=== PATIENT | male | born 1985 | race Caucasian/White ===

== ENCOUNTER 2018-04-07 18:23 | Emergency (ER) | payer MEDICAID ==
[~2018-04-07] VITALS: Ht 193 cm; Wt 81.0 kg
[~2018-04-07 18:23] MED LIST: CEPH-572 PO; CYCL-1 PO; FAMO-128 PO; HYDR-569 PO; METH-360 PO; ONDA8TAB9 PO; SULF1TAB49 PO; VANC5VIA PO
[2018-04-07] MEDS ORDERED: BACDS PO (20:09)
[2018-04-07 20:27] VITALS: BP 121/76
== END 2018-04-07 20:34 | disposition home or self-care (01) ==
LOC: ER 18:23
DX: L03.115 Cellulitis of right lower limb (principal); K21.9 Gastro-esophageal reflux disease without esophagitis; G89.29 Other chronic pain; F12.10 Cannabis abuse, uncomplicated; Z90.49 Acquired absence of other specified parts of digestive tract; Z88.8 Allergy status to other drugs, medicaments and biological substances; Z79.899 Other long term (current) drug therapy
CPT/HCPCS: 99283

== ENCOUNTER 2018-11-27 01:43 | Emergency (ER) | payer MEDICAID ==
[~2018-11-27] VITALS: Ht 193 cm; Wt 85.1 kg
[~2018-11-27 01:43] MED LIST changes: -CEPH-572 PO; +GABA300C PO; +HYDR-4383 PO; -HYDR-569 PO; +ONDA4TAB6 PO; -SULF1TAB49 PO
[2018-11-27 01:56] VITALS: BP 117/81
[2018-11-27 03:07] LABS: BASOPHILS % (AUTO) 0.3 % (0-1); EOSINOPHILS # (AUTO) 0.1 X10'3 (0-0.9); EOSINOPHILS % (AUTO) 1.1 % (0-6); HEMATOCRIT 43.1 % (42.0-52.0); HEMOGLOBIN 14.6 g/dl (14.0-17.9); LYMPHOCYTES # (AUTO) 1.9 X10'3 (1.1-4.8); LYMPHOCYTES % (AUTO) 19.1 % (21-51); MEAN CORPUSCULAR HEMOGLOBIN 30.3 PG (27.0-31.0); MEAN CORPUSCULAR HGB CONC 33.9 % (33.0-36.5); MEAN CORPUSCULAR VOLUME 89.5 FL (78-98); MEAN PLATELET VOLUME 8.5 FL (7.4-10.4); MONOCYTES # (AUTO) 0.8 X10'3 (0-0.9); MONOCYTES % (AUTO) 7.7 % (2-12); NEUTROPHILS % (AUTO) 71.8 % (42-75); PLATELET COUNT 310 X10'3 (140-440); RED BLOOD COUNT 4.82 X10'6 (4.70-6.10); RED CELL DISTRIBUTION WIDTH 11.8 % (11.5-14.5); WHITE BLOOD COUNT 9.8 X10'3 (4.5-11.0)
[2018-11-27 03:17] LABS: ALANINE AMINOTRANSFERASE 27 U/L (12-78); ALBUMIN 4.2 G/DL (3.4-5.0); ALBUMIN/GLOBULIN RATIO 1.4 (1.1-1.5); ALKALINE PHOSPHATASE 43 IU/L (46-116); ANION GAP 11 (8-16); ASPARTATE AMINO TRANSFERASE 12 U/L (10-37); BILIRUBIN,TOTAL 1.3 MG/DL (0.1-1.0); BLOOD UREA NITROGEN 25 MG/DL (7-18); BUN/CREATININE RATIO 16.9 (5.4-32.0); CHLORIDE 105 MMOL/L (99-107); CREATININE 1.48 MG/DL (0.60-1.10); GLUCOSE 92 MG/DL (70-104); LIPASE 83 U/L (73-393); POTASSIUM 4.7 MMOL/L (3.5-5.1); SODIUM 141 MMOL/L (135-145); TOTAL CARBON DIOXIDE 24.7 MMOL/L (24-32); TOTAL PROTEIN 7.1 G/DL (6.4-8.2); eGFR 55 ML/MIN
[2018-11-27] MEDS ORDERED: HYDROcodone/acetaminophen 10/325mg tab PO ONE (04:35)
[2018-11-27] MEDS ORDERED: ondansetron/PF 4mg/2ml inj IV ONE (04:35)
[2018-11-27] MEDS ORDERED: morphine 4 MG/ML inj SYRINge IV ONE (04:50)
--- NOTE | 2018-11-27 04:52 | NUR ---
made aware pt refused norco and wants IV pain medicine.
--- NOTE | 2018-11-27 05:09 | NUR ---
pt given d/c instructions, however, he is laying in the bed and feels like vomiting, mom at his side.
[2018-11-27] MEDS ORDERED: FAMO40TA73 PO (16:17)
[2018-11-27] MEDS ORDERED: ONDA4TAB6 PO (16:17)
[2018-11-27] MEDS ORDERED: PHE25R PR (20:37)
[2018-11-27] MEDS ORDERED: SUCR1TAB34 PO (20:37)
[2018-11-28] MEDS ORDERED: SUCR1TAB34 PO (21:38)
== END 2018-11-27 05:14 | disposition home or self-care (01) ==
LOC: ER 01:44
DX: R10.33 Periumbilical pain (principal); R11.2 Nausea with vomiting, unspecified; F12.90 Cannabis use, unspecified, uncomplicated; K21.9 Gastro-esophageal reflux disease without esophagitis; G89.29 Other chronic pain; Z90.49 Acquired absence of other specified parts of digestive tract; Z88.1 Allergy status to other antibiotic agents; Z88.6 Allergy status to analgesic agent; Z79.899 Other long term (current) drug therapy
CPT/HCPCS: 36415; 74176; 80053; 83690; 85025; 96374; 96375; 99284; J2270; J2405

== ENCOUNTER 2018-11-27 13:36 | Emergency (ER) | payer MEDICAID ==
[~2018-11-27] VITALS: Ht 193 cm; Wt 85.6 kg
[2018-11-27] MEDS ORDERED: normal saline 1000ML IV soln IVB ONE (15:15)
[2018-11-27] MEDS ORDERED: famotidine/PF 10 mg/ml inj IV ONE (15:15)
[2018-11-27] MEDS ORDERED: ondansetron/PF 4mg/2ml inj IV ONE (15:15)
[2018-11-27 15:38] LABS: BASOPHILS % (AUTO) 0.5 % (0-1); EOSINOPHILS # (AUTO) 0.1 X10'3 (0-0.9); EOSINOPHILS % (AUTO) 1.8 % (0-6); HEMATOCRIT 39.2 % (42.0-52.0); HEMOGLOBIN 13.6 g/dl (14.0-17.9); LYMPHOCYTES # (AUTO) 1.2 X10'3 (1.1-4.8); LYMPHOCYTES % (AUTO) 18.3 % (21-51); MEAN CORPUSCULAR HEMOGLOBIN 31.1 PG (27.0-31.0); MEAN CORPUSCULAR HGB CONC 34.5 % (33.0-36.5); MEAN CORPUSCULAR VOLUME 89.9 FL (78-98); MEAN PLATELET VOLUME 8.3 FL (7.4-10.4); MONOCYTES # (AUTO) 0.4 X10'3 (0-0.9); MONOCYTES % (AUTO) 5.9 % (2-12); NEUTROPHILS # (AUTO) 5.1 X10'3 (1.8-7.7); NEUTROPHILS % (AUTO) 73.5 % (42-75); PLATELET COUNT 235 X10'3 (140-440); RED BLOOD COUNT 4.36 X10'6 (4.70-6.10); WHITE BLOOD COUNT 6.8 X10'3 (4.5-11.0)
[2018-11-27] MEDS: morphine 4 MG/ML inj SYRINge IV PRN ×3 (15:38→17:39)
[2018-11-27 15:52] LABS: ALANINE AMINOTRANSFERASE 25 U/L (12-78); ALBUMIN 3.7 G/DL (3.4-5.0); ALBUMIN/GLOBULIN RATIO 1.3 (1.1-1.5); ALKALINE PHOSPHATASE 38 IU/L (46-116); ANION GAP 8 (8-16); ASPARTATE AMINO TRANSFERASE 10 U/L (10-37); BILIRUBIN,TOTAL 1.1 MG/DL (0.1-1.0); BLOOD UREA NITROGEN 18 MG/DL (7-18); BUN/CREATININE RATIO 14.2 (5.4-32.0); CALCIUM 8.6 MG/DL (8.5-10.1); CHLORIDE 107 MMOL/L (99-107); CREATININE 1.27 MG/DL (0.60-1.10); ETHANOL < 0.010 GM/DL (0.0-0.010); GLUCOSE 98 MG/DL (70-104); LIPASE 111 U/L (73-393); POTASSIUM 3.9 MMOL/L (3.5-5.1); SODIUM 142 MMOL/L (135-145); TOTAL CARBON DIOXIDE 26.7 MMOL/L (24-32); TOTAL PROTEIN 6.5 G/DL (6.4-8.2); eGFR 65 ML/MIN
[2018-11-27] MEDS ORDERED: ONDA4TAB6 PO (16:17)
[2018-11-27] MEDS ORDERED: FAMO40TA73 PO (16:17)
[2018-11-27] MEDS ORDERED: ketorolac trometh. 30mg/ml inj. IV ONE (17:25)
[2018-11-27 18:03] VITALS: BP 129/86
[2018-11-27] MEDS ORDERED: PHE25R PR (20:37)
[2018-11-27] MEDS ORDERED: SUCR1TAB34 PO (20:37)
[2018-11-28] MEDS ORDERED: SUCR1TAB34 PO (21:38)
== END 2018-11-27 17:55 | disposition home or self-care (01) ==
LOC: ER 13:37
DX: K29.20 Alcoholic gastritis without bleeding (principal); R10.30 Lower abdominal pain, unspecified; R10.84 Generalized abdominal pain; K21.9 Gastro-esophageal reflux disease without esophagitis; G89.29 Other chronic pain; F12.90 Cannabis use, unspecified, uncomplicated; Z90.49 Acquired absence of other specified parts of digestive tract; Z88.1 Allergy status to other antibiotic agents; Z88.6 Allergy status to analgesic agent; Z79.899 Other long term (current) drug therapy
CPT/HCPCS: 36415; 80053; 80320; 83690; 85025; 96361; 96374; 96375; 96376; 99283; J1885; J2270; J2405; J3490; J7030

== ENCOUNTER 2018-11-27 20:10 | Emergency (ER) | payer MEDICAID ==
[~2018-11-27] VITALS: Ht 193 cm; Wt 85.0 kg
[~2018-11-27 20:10] MED LIST changes: +FAMO40TA73 PO
[2018-11-27 20:14] VITALS: BP 113/84
[2018-11-27] MEDS ORDERED: PHE25R PR (20:37)
[2018-11-27] MEDS ORDERED: SUCR1TAB34 PO (20:37)
[2018-11-28] MEDS ORDERED: SUCR1TAB34 PO (21:38)
== END 2018-11-27 20:55 | disposition home or self-care (01) ==
LOC: ER 20:11
DX: K29.70 Gastritis, unspecified, without bleeding (principal); K21.9 Gastro-esophageal reflux disease without esophagitis; G89.29 Other chronic pain; F12.90 Cannabis use, unspecified, uncomplicated; Z88.1 Allergy status to other antibiotic agents; Z88.6 Allergy status to analgesic agent; Z79.899 Other long term (current) drug therapy; Z87.19 Personal history of other diseases of the digestive system; Z90.49 Acquired absence of other specified parts of digestive tract; Z95.1 Presence of aortocoronary bypass graft
CPT/HCPCS: 99283

== ENCOUNTER 2020-05-06 13:56 | Emergency (ER) | payer OTHER ==
[~2020-05-06] VITALS: Ht 193 cm; Wt 100.0 kg
[~2020-05-06 13:56] MED LIST changes: -CYCL-1 PO; -FAMO-128 PO; -FAMO40TA73 PO; -HYDR-4383 PO; -METH-360 PO; -ONDA8TAB9 PO; +SUCR1TAB34 PO; -VANC5VIA PO
[2020-05-06] MEDS ORDERED: ondansetron/PF 4mg/2ml inj IV ONE (14:00)
[2020-05-06] MEDS ORDERED: normal saline 1000ML IV soln IVB ONE ×2 (14:00→15:40)
[2020-05-06 14:44] LABS: BASOPHILS % (AUTO) 0.2 % (0-1); EOSINOPHILS % (AUTO) 0 % (0-6); HEMATOCRIT 47.1 % (42.0-52.0); HEMOGLOBIN 16.5 g/dl (14.0-17.9); LYMPHOCYTES # (AUTO) 0.6 X10'3 (1.1-4.8); LYMPHOCYTES % (AUTO) 6.4 % (21-51); MEAN CORPUSCULAR HEMOGLOBIN 33.9 PG (27.0-31.0); MEAN PLATELET VOLUME 8.4 FL (7.4-10.4); MONOCYTES # (AUTO) 0.4 X10'3 (0-0.9); MONOCYTES % (AUTO) 4.6 % (2-12); NEUTROPHILS # (AUTO) 8.4 X10'3 (1.8-7.7); NEUTROPHILS % (AUTO) 88.8 % (42-75); PLATELET COUNT 272 X10'3 (140-440); RED BLOOD COUNT 4.86 X10'6 (4.70-6.10); RED CELL DISTRIBUTION WIDTH 12.8 % (11.5-14.5); WHITE BLOOD COUNT 9.5 X10'3 (4.5-11.0)
[2020-05-06 14:52] LABS: ALANINE AMINOTRANSFERASE 216 U/L (12-78); ALBUMIN 4.9 G/DL (3.4-5.0); ALBUMIN/GLOBULIN RATIO 1.4 (1.1-1.5); ALKALINE PHOSPHATASE 52 IU/L (46-116); ANION GAP 14 (8-16); ASPARTATE AMINO TRANSFERASE 85 U/L (10-37); BILIRUBIN,TOTAL 1.3 MG/DL (0.1-1.0); BLOOD UREA NITROGEN 13 MG/DL (7-18); BUN/CREATININE RATIO 10.6 (5.4-32.0); CALCIUM 9.8 MG/DL (8.5-10.1); CHLORIDE 105 MMOL/L (99-107); CREATININE 1.23 MG/DL (0.60-1.10); GLUCOSE 135 MG/DL (70-104); LIPASE 126 U/L (73-393); POTASSIUM 3.8 MMOL/L (3.5-5.1); SODIUM 144 MMOL/L (135-145); TOTAL CARBON DIOXIDE 25.4 MMOL/L (24-32); TOTAL PROTEIN 8.4 G/DL (6.4-8.2); eGFR 67 ML/MIN
[2020-05-06] MEDS ORDERED: famotidine/PF 10 mg/ml inj IV ONE (15:55)
[2020-05-06] MEDS ORDERED: morphine 4 MG/ML inj SYRINge IV ONE (15:55)
[2020-05-06] MEDS ORDERED: pantoprazole 40 MG vial IV ONE (15:55)
[2020-05-06] MEDS ORDERED: proCHLORperazine 10 MG/2 ml inj IV ONE (15:55)
[2020-05-06 16:32] VITALS: BP 177/83
[2020-05-06 16:32] LABS: ETHANOL < 0.010 GM/DL (0.0-0.010)
[2020-05-06] MEDS ORDERED: LORazepam 2 mg/ml vial IV ONE (16:45)
[2020-05-06] MEDS ORDERED: metoclopramide 5 mg/ml inj IV ONE (16:45)
[2020-05-06] MEDS ORDERED: morphine 10mg/ml inj. IV ONE (16:45)
[2020-05-06] MEDS ORDERED: CHLO25CA10 PO (18:01)
[2020-05-06] MEDS ORDERED: PANT-47 PO (18:02)
== END 2020-05-06 18:13 | disposition home or self-care (01) ==
LOC: ER 13:56
DX: R10.11 Right upper quadrant pain (principal); F10.10 Alcohol abuse, uncomplicated; K21.9 Gastro-esophageal reflux disease without esophagitis; G89.29 Other chronic pain; F12.90 Cannabis use, unspecified, uncomplicated; Z90.89 Acquired absence of other organs; Z98.890 Other specified postprocedural states; Z72.89 Other problems related to lifestyle; Z88.6 Allergy status to analgesic agent; Z88.1 Allergy status to other antibiotic agents; Z79.899 Other long term (current) drug therapy; Y90.9 Presence of alcohol in blood, level not specified
CPT/HCPCS: 36415; 76700; 80053; 80320; 83690; 85025; 96374; 96375; 96376; 99284; C9113; J0780; J2060; J2270; J2405; J2765; J3490; J7030

== ENCOUNTER 2020-05-14 00:43 | Emergency (ER) | payer OTHER ==
[~2020-05-14] VITALS: Ht 193 cm; Wt 100.0 kg
[~2020-05-14 00:43] MED LIST changes: +CHLO25CA10 PO; +PANT-47 PO
[2020-05-14] MEDS ORDERED: normal saline 1000ML IV soln IVB ONE (00:55)
[2020-05-14] MEDS ORDERED: ondansetron/PF 4mg/2ml inj IV ONE (00:55)
[2020-05-14] MEDS ORDERED: morphine 4 MG/ML inj SYRINge IV PRN ×2 (00:55→03:15)
[2020-05-14] MEDS ORDERED: ketorolac trometh. 30mg/ml inj. IV ONE (00:55)
[2020-05-14 01:12] LABS: BASOPHILS % (AUTO) 0.4 % (0-1); EOSINOPHILS # (AUTO) 0.1 X10'3 (0-0.9); EOSINOPHILS % (AUTO) 0.6 % (0-6); HEMATOCRIT 48.4 % (42.0-52.0); HEMOGLOBIN 16.7 g/dl (14.0-17.9); LYMPHOCYTES # (AUTO) 1.6 X10'3 (1.1-4.8); LYMPHOCYTES % (AUTO) 13.7 % (21-51); MEAN CORPUSCULAR HEMOGLOBIN 33.6 PG (27.0-31.0); MEAN CORPUSCULAR HGB CONC 34.6 g/dL (33.0-36.5); MEAN PLATELET VOLUME 7.7 FL (7.4-10.4); MONOCYTES # (AUTO) 0.7 X10'3 (0-0.9); NEUTROPHILS # (AUTO) 9.5 X10'3 (1.8-7.7); NEUTROPHILS % (AUTO) 79.3 % (42-75); PLATELET COUNT 303 X10'3 (140-440); RED BLOOD COUNT 4.98 X10'6 (4.70-6.10); RED CELL DISTRIBUTION WIDTH 12.9 % (11.5-14.5)
[2020-05-14 01:14] VITALS: BP 166/113
[2020-05-14] MEDS ORDERED: haloperidol lactate 5mg/ml inj IM ONE (01:25)
[2020-05-14] MEDS ORDERED: diphenhydrAMINE 50 mg/ml inj IV ONE (01:25)
[2020-05-14 01:26] LABS: ALANINE AMINOTRANSFERASE 242 U/L (12-78); ALBUMIN 4.6 G/DL (3.4-5.0); ALBUMIN/GLOBULIN RATIO 1.4 (1.1-1.5); ALKALINE PHOSPHATASE 58 IU/L (46-116); ANION GAP 11 (8-16); ASPARTATE AMINO TRANSFERASE 99 U/L (10-37); BILIRUBIN,TOTAL 0.7 MG/DL (0.1-1.0); BLOOD UREA NITROGEN 5 MG/DL (7-18); BUN/CREATININE RATIO 4.1 (5.4-32.0); CALCIUM 9.5 MG/DL (8.5-10.1); CHLORIDE 106 MMOL/L (99-107); CREATININE 1.23 MG/DL (0.60-1.10); GLUCOSE 127 MG/DL (70-104); LIPASE 229 U/L (73-393); POTASSIUM 3.8 MMOL/L (3.5-5.1); SODIUM 145 MMOL/L (135-145); TOTAL CARBON DIOXIDE 27.7 MMOL/L (24-32); TOTAL PROTEIN 7.9 G/DL (6.4-8.2); eGFR 67 ML/MIN
[2020-05-14] MEDS ORDERED: HYDR-3973 PO (01:45)
[2020-05-14 01:56] LABS: CLARITY,URINE CLEAR (Clear); COLOR,URINE YELLOW (Yellow); GLUCOSE, URINE NEGATIVE (Neg); KETONES,URINE NEGATIVE (Neg); LEUKOCYTE ESTERASE ,URINE NEGATIVE (Neg); NITRITES, URINE NEGATIVE (Neg); OCCULT BLOOD,URINE NEGATIVE (Neg); PH,URINE 8.5 (4.8-8.0); PROTEIN,URINE 30 mg/dl (Neg)
[2020-05-14 01:57] LABS: UA COLLECTION TYPE CLN CATCH MIDSTREAM
[2020-05-14 02:02] LABS: BACTERIA,URINE NONE SEEN /HPF (Neg); RBC,URINE NONE SEEN /HPF (0-2); SQUAMOUS EPITHELIAL CELL,UR FEW /LPF (FEW); WBC,URINE NONE SEEN /HPF (0-4)
== END 2020-05-14 03:36 | disposition home or self-care (01) ==
LOC: ER 00:44
DX: R10.11 Right upper quadrant pain (principal); G89.29 Other chronic pain; K21.9 Gastro-esophageal reflux disease without esophagitis; F12.90 Cannabis use, unspecified, uncomplicated; F10.20 Alcohol dependence, uncomplicated; R11.10 Vomiting, unspecified; Z90.49 Acquired absence of other specified parts of digestive tract; Z98.890 Other specified postprocedural states; Z88.8 Allergy status to other drugs, medicaments and biological substances; Z79.899 Other long term (current) drug therapy; Y90.0 Blood alcohol level of less than 20 mg/100 ml
CPT/HCPCS: 36415; 80053; 81001; 83690; 85025; 96361; 96372; 96374; 96375; 96376; 99284; J1200; J1630; J1885; J2270; J2405; J7030

== ENCOUNTER 2021-05-30 14:27 | Emergency (ER) | payer MEDICAID, OTHER ==
[~2021-05-30] VITALS: Ht 177.8 cm; Wt 75.0 kg
[~2021-05-30 14:27] MED LIST changes: -CHLO25CA10 PO; -GABA300C PO; +HYDR-3973 PO; -ONDA4TAB6 PO; -PANT-47 PO; -SUCR1TAB34 PO
[2021-05-30] MEDS ORDERED: MIDAZolam 5mg/ml 2ml vial IM ONE (14:30)
--- NOTE | 2021-05-30 15:06 | NUR ---
dr herrera at bedside.
[2021-05-30 15:26] LABS: BASOPHILS # (AUTO) 0.1 X10'3 (0-0.2); BASOPHILS % (AUTO) 0.5 % (0-1); EOSINOPHILS # (AUTO) 0.1 X10'3 (0-0.9); EOSINOPHILS % (AUTO) 1.3 % (0-6); HEMATOCRIT 38.3 % (42.0-52.0); HEMOGLOBIN 13.3 g/dl (14.0-17.9); LYMPHOCYTES # (AUTO) 1.7 X10'3 (1.1-4.8); LYMPHOCYTES % (AUTO) 16.3 % (21-51); MEAN CORPUSCULAR HEMOGLOBIN 29.7 PG (27.0-31.0); MEAN CORPUSCULAR HGB CONC 34.8 g/dL (33.0-36.5); MEAN CORPUSCULAR VOLUME 85.3 FL (78-98); MEAN PLATELET VOLUME 7.8 FL (7.4-10.4); MONOCYTES # (AUTO) 0.8 X10'3 (0-0.9); MONOCYTES % (AUTO) 7.9 % (2-12); NEUTROPHILS # (AUTO) 7.6 X10'3 (1.8-7.7); PLATELET COUNT 270 X10'3 (140-440); RED BLOOD COUNT 4.49 X10'6 (4.70-6.10); RED CELL DISTRIBUTION WIDTH 12.8 % (11.5-14.5); WHITE BLOOD COUNT 10.3 X10'3 (4.5-11.0)
--- NOTE | 2021-05-30 16:01 | NUR ---
RESTRAIN D/C PT IS SLEEPING SOUNDLY IN BED SITTER OUTSIDE THE ROOM.
[2021-05-30 16:13] LABS: ALANINE AMINOTRANSFERASE 28 U/L (12-78); ALBUMIN 4.1 G/DL (3.4-5.0); ALBUMIN/GLOBULIN RATIO 1.2 (1.1-1.5); ALKALINE PHOSPHATASE 46 IU/L (46-116); ANION GAP 14 (8-16); ASPARTATE AMINO TRANSFERASE 36 U/L (10-37); BILIRUBIN,TOTAL 0.8 MG/DL (0.1-1.0); BLOOD UREA NITROGEN 15 MG/DL (7-18); BUN/CREATININE RATIO 11.9 (5.4-32.0); CHLORIDE 107 MMOL/L (99-107); CREATININE 1.26 MG/DL (0.60-1.10); GLUCOSE 102 MG/DL (70-104); POTASSIUM 3.4 MMOL/L (3.5-5.1); SODIUM 146 MMOL/L (135-145); TOTAL CARBON DIOXIDE 25.3 MMOL/L (24-32); TOTAL PROTEIN 7.4 G/DL (6.4-8.2); eGFR 65 ML/MIN
[2021-05-30 16:16] LABS: ETHANOL < 0.010 GM/DL (0.0-0.010)
[2021-05-30 16:21] LABS: CREATINE KINASE 1832 U/L (39-308)
[2021-05-30] MEDS ORDERED: normal saline 1000ml 1,000 ML IV ONE ×2 (17:10)
--- NOTE | 2021-05-30 19:39 | NUR ---
PT APPEARS TO BE SLEEPING COMFORTABLY. SHOWS NO S/S OF ACUTE DISTRESS.
--- NOTE | 2021-05-30 20:39 | NUR ---
PT AWAKE AND ANSWERING QUESTIONS. PT ORIENTED TO PERSON, PLACE, EVENT. PT STATES "I FEEL LIKE I CANT CONCENTRATE". PT STATES HE IS HEARING SCREAMS, AND SEEING "BLOBS OF BLOOD". PT REFUSING PHYSICAL ASSESSMENT, REQUESTS TO BE "LEFT ALONE". PT LYING SUPINE, KEEPING EYES CLOSED WHILE RAISING HEAD AND NECK OFF THE BED WHILE MOVING HED IN BACK AND FOURTH, CIRCULAR MOTION. NOTIFIED MD OF PT DISPOSITION.
[2021-05-30 21:04] LABS: CREATINE KINASE 1577 U/L (39-308)
[2021-05-30] MEDS ORDERED: MIDAZolam 5mg/ml 2ml vial IV ONE ×2 (23:30→23:45)
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
[2021-05-31 01:10] VITALS: BP 132/86
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
== END 2021-05-31 02:16 ==
LOC: ER 14:28
DX: T67.9XXA Effect of heat and light, unspecified, initial encounter (principal); F79 Unspecified intellectual disabilities; M62.82 Rhabdomyolysis; R45.1 Restlessness and agitation; K21.9 Gastro-esophageal reflux disease without esophagitis; G89.29 Other chronic pain; F12.90 Cannabis use, unspecified, uncomplicated; Z90.89 Acquired absence of other organs; Z98.890 Other specified postprocedural states; Z72.89 Other problems related to lifestyle; Z88.1 Allergy status to other antibiotic agents; Z88.6 Allergy status to analgesic agent; Z79.899 Other long term (current) drug therapy; X30.XXXA Exposure to excessive natural heat, initial encounter; Y93.89 Activity, other specified; Y92.89 Other specified places as the place of occurrence of the external cause; Y99.8 Other external cause status
CPT/HCPCS: 36415; 80053; 80320; 82550; 84443; 85025; 93005; 96361; 96372; 96374; 99285; J2250; J7030

== ENCOUNTER 2021-08-18 08:53 | Emergency (ER) | payer MEDICAID ==
[~2021-08-18] VITALS: Ht 190.5 cm; Wt 60.0 kg
[2021-08-18 08:59] VITALS: BP 129/86
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
== END 2021-08-18 22:30 | disposition left against medical advice (07) ==
LOC: ER 08:54
DX: S01.112A Laceration without foreign body of left eyelid and periocular area, initial encounter (principal); K21.9 Gastro-esophageal reflux disease without esophagitis; G89.29 Other chronic pain; F12.90 Cannabis use, unspecified, uncomplicated; Z53.21 Procedure and treatment not carried out due to patient leaving prior to being seen by health care provider; Z90.89 Acquired absence of other organs; Z72.89 Other problems related to lifestyle; Z88.1 Allergy status to other antibiotic agents; Z88.6 Allergy status to analgesic agent; Z98.890 Other specified postprocedural states; Z79.899 Other long term (current) drug therapy; X58.XXXA Exposure to other specified factors, initial encounter; Y93.89 Activity, other specified; Y92.89 Other specified places as the place of occurrence of the external cause; Y99.8 Other external cause status

== ENCOUNTER 2021-10-05 16:34 | Emergency (ER) | payer MEDICAID ==
[~2021-10-05] VITALS: Ht 167.6 cm; Wt 76.0 kg
[2021-10-05 17:16] VITALS: BP 134/75
== END 2021-10-05 18:45 | disposition home or self-care (01) ==
LOC: ER 16:34
DX: T40.1X1A Poisoning by heroin, accidental (unintentional), initial encounter (principal); K21.9 Gastro-esophageal reflux disease without esophagitis; G89.29 Other chronic pain; F12.90 Cannabis use, unspecified, uncomplicated; F15.90 Other stimulant use, unspecified, uncomplicated; F11.90 Opioid use, unspecified, uncomplicated; Z90.89 Acquired absence of other organs; Z98.890 Other specified postprocedural states; Z95.1 Presence of aortocoronary bypass graft; Z72.89 Other problems related to lifestyle; Z88.1 Allergy status to other antibiotic agents; Z88.6 Allergy status to analgesic agent; Z79.899 Other long term (current) drug therapy; Y92.89 Other specified places as the place of occurrence of the external cause
CPT/HCPCS: 99283

== ENCOUNTER 2021-12-07 15:51 | Emergency (ER) | payer MEDICAID ==
[~2021-12-07] VITALS: Ht 193 cm; Wt 90.9 kg
[2021-12-07] MEDS ORDERED: naloxone 0.4 mg/ml inj IV PRN (16:00)
[2021-12-07 17:01] LABS: BASOPHILS # (AUTO) 0.1 X10'3 (0-0.2); BASOPHILS % (AUTO) 0.7 % (0-1); EOSINOPHILS # (AUTO) 0.2 X10'3 (0-0.9); EOSINOPHILS % (AUTO) 2.6 % (0-6); HEMATOCRIT 38.7 % (42.0-52.0); HEMOGLOBIN 13.1 g/dl (14.0-17.9); LYMPHOCYTES # (AUTO) 1.4 X10'3 (1.1-4.8); LYMPHOCYTES % (AUTO) 15.7 % (21-51); MEAN CORPUSCULAR HEMOGLOBIN 29.9 PG (27.0-31.0); MEAN CORPUSCULAR HGB CONC 33.9 g/dL (33.0-36.5); MEAN CORPUSCULAR VOLUME 88.2 FL (78-98); MEAN PLATELET VOLUME 7.8 FL (7.4-10.4); MONOCYTES # (AUTO) 0.5 X10'3 (0-0.9); MONOCYTES % (AUTO) 5.2 % (2-12); NEUTROPHILS # (AUTO) 6.7 X10'3 (1.8-7.7); NEUTROPHILS % (AUTO) 75.8 % (42-75); PLATELET COUNT 267 X10'3 (140-440); RED BLOOD COUNT 4.39 X10'6 (4.70-6.10); RED CELL DISTRIBUTION WIDTH 13.6 % (11.5-14.5); WHITE BLOOD COUNT 8.8 X10'3 (4.5-11.0)
[2021-12-07 17:16] LABS: ALANINE AMINOTRANSFERASE 21 U/L (12-78); ALBUMIN/GLOBULIN RATIO 1.5 (1.1-1.5); ALKALINE PHOSPHATASE 58 IU/L (46-116); ANION GAP 10 (8-16); ASPARTATE AMINO TRANSFERASE 20 U/L (10-37); BILIRUBIN,TOTAL 0.6 MG/DL (0.1-1.0); BLOOD UREA NITROGEN 12 MG/DL (7-18); BUN/CREATININE RATIO 11.2 (5.4-32.0); CALCIUM 8.4 MG/DL (8.5-10.1); CHLORIDE 108 MMOL/L (99-107); CREATININE 1.07 MG/DL (0.60-1.10); ETHANOL < 0.010 GM/DL (0.0-0.010); GLUCOSE 79 MG/DL (70-104); POTASSIUM 3.1 MMOL/L (3.5-5.1); SODIUM 146 MMOL/L (135-145); TOTAL CARBON DIOXIDE 28.2 MMOL/L (24-32); TOTAL PROTEIN 6.7 G/DL (6.4-8.2); eGFR 78 ML/MIN
[2021-12-07] MEDS ORDERED: NALO4SPR BOTHNARES (18:10)
[2021-12-07 18:56] VITALS: BP 120/87
== END 2021-12-07 18:57 | disposition home or self-care (01) ==
LOC: ER 15:52
DX: T40.411A Poisoning by fentanyl or fentanyl analogs, accidental (unintentional), initial encounter (principal); R07.89 Other chest pain; K21.9 Gastro-esophageal reflux disease without esophagitis; F12.90 Cannabis use, unspecified, uncomplicated; F15.90 Other stimulant use, unspecified, uncomplicated; F11.90 Opioid use, unspecified, uncomplicated; Z88.1 Allergy status to other antibiotic agents; Z88.5 Allergy status to narcotic agent; Y92.89 Other specified places as the place of occurrence of the external cause
CPT/HCPCS: 36415; 71045; 80053; 80320; 85025; 93005; 99285

== ENCOUNTER 2022-04-08 14:01 | Emergency (ER) | payer MEDICAID ==
[~2022-04-08] VITALS: Ht 182.9 cm; Wt 73.0 kg
[~2022-04-08 14:01] MED LIST changes: +NALO4SPR BOTHNARES
[2022-04-08] MEDS ORDERED: normal saline 1000ML IV soln IVB ONE (14:15)
[2022-04-08 14:24] LABS: BASOPHILS # (AUTO) 0.1 X10'3 (0-0.2); BASOPHILS % (AUTO) 0.9 % (0-1); EOSINOPHILS # (AUTO) 0.2 X10'3 (0-0.9); EOSINOPHILS % (AUTO) 2.2 % (0-6); HEMATOCRIT 41.8 % (42.0-52.0); HEMOGLOBIN 14.3 g/dl (14.0-17.9); LYMPHOCYTES % (AUTO) 19.4 % (21-51); MEAN CORPUSCULAR HEMOGLOBIN 30.3 PG (27.0-31.0); MEAN CORPUSCULAR HGB CONC 34.2 g/dL (33.0-36.5); MEAN CORPUSCULAR VOLUME 88.6 FL (78-98); MEAN PLATELET VOLUME 7.5 FL (7.4-10.4); MONOCYTES # (AUTO) 0.4 X10'3 (0-0.9); MONOCYTES % (AUTO) 4.3 % (2-12); NEUTROPHILS # (AUTO) 7.6 X10'3 (1.8-7.7); NEUTROPHILS % (AUTO) 73.2 % (42-75); PLATELET COUNT 254 X10'3 (140-440); RED BLOOD COUNT 4.71 X10'6 (4.70-6.10); RED CELL DISTRIBUTION WIDTH 13.9 % (11.5-14.5); WHITE BLOOD COUNT 10.4 X10'3 (4.5-11.0)
[2022-04-08 14:38] LABS: ALANINE AMINOTRANSFERASE 38 U/L (12-78); ALBUMIN 3.9 G/DL (3.4-5.0); ALBUMIN/GLOBULIN RATIO 1.3 (1.1-1.5); ALKALINE PHOSPHATASE 61 IU/L (46-116); ANION GAP 6 (8-16); ASPARTATE AMINO TRANSFERASE 40 U/L (10-37); BILIRUBIN,TOTAL 0.3 MG/DL (0.1-1.0); BLOOD UREA NITROGEN 16 MG/DL (7-18); BUN/CREATININE RATIO 15.2 (5.4-32.0); CALCIUM 8.1 MG/DL (8.5-10.1); CHLORIDE 109 MMOL/L (99-107); CREATININE 1.05 MG/DL (0.60-1.10); GLUCOSE 139 MG/DL (70-104); POTASSIUM 3.5 MMOL/L (3.5-5.1); SODIUM 146 MMOL/L (135-145); TOTAL CARBON DIOXIDE 31.3 MMOL/L (24-32); TOTAL PROTEIN 6.8 G/DL (6.4-8.2); eGFR 80 ML/MIN
[2022-04-08 15:02] VITALS: BP 116/77
== END 2022-04-08 16:00 | disposition home or self-care (01) ==
LOC: ER 14:01
DX: T40.411A Poisoning by fentanyl or fentanyl analogs, accidental (unintentional), initial encounter (principal); K21.9 Gastro-esophageal reflux disease without esophagitis; G89.29 Other chronic pain; F12.90 Cannabis use, unspecified, uncomplicated; F15.90 Other stimulant use, unspecified, uncomplicated; F11.90 Opioid use, unspecified, uncomplicated; F19.90 Other psychoactive substance use, unspecified, uncomplicated; Z90.89 Acquired absence of other organs; Z98.890 Other specified postprocedural states; Z72.89 Other problems related to lifestyle; Z88.1 Allergy status to other antibiotic agents; Z88.6 Allergy status to analgesic agent; Z79.899 Other long term (current) drug therapy; Y92.89 Other specified places as the place of occurrence of the external cause
CPT/HCPCS: 36415; 71045; 80053; 85025; 93005; 96360; 99285; J7030